=== PATIENT | female | born 1980 | race Two or more races ===

== ENCOUNTER 2016-12-31 11:14 | Emergency (ER) | payer OTHER | END 2016-12-31 12:00 | disposition home or self-care (01) | LOC: ED 11:14 | DX: B30.9 Viral conjunctivitis, unspecified (principal); E05.00 Thyrotoxicosis with diffuse goiter without thyrotoxic crisis or storm ==

== ENCOUNTER 2017-01-02 14:15 | Emergency (ER) | payer OTHER | END 2017-01-02 16:11 | disposition home or self-care (01) | LOC: ED 14:15 | DX: L02.01 Cutaneous abscess of face (principal); E05.00 Thyrotoxicosis with diffuse goiter without thyrotoxic crisis or storm; Z86.14 Personal history of Methicillin resistant Staphylococcus aureus infection ==